=== PATIENT | female | born 1995 ===

== ENCOUNTER 2017-01-06 06:24 | Emergency (ER) | payer MEDICAID ==
[2017-01-06 07:18] VITALS: BMI 32.5
[2017-01-06 11:53] VITALS: BP 106/57; PULSE 62; RESP 18; TEMP 98.3
== END 2017-01-06 07:45 | disposition home or self-care (01) ==
LOC: H.EROB2 06:24
DX: O47.1 False labor at or after 37 completed weeks of gestation (principal); O48.0 Post-term pregnancy; Z3A.40 40 weeks gestation of pregnancy

== ENCOUNTER 2017-01-06 19:06 | Emergency (ER) | payer MEDICAID ==
[2017-01-06 07:18] VITALS: BMI 32.5
[2017-01-07 02:25] VITALS: BP 117/69; PULSE 67; O2SAT 100
== END 2017-01-06 20:30 | disposition home or self-care (01) ==
LOC: H.EROB2 19:06
DX: O47.1 False labor at or after 37 completed weeks of gestation (principal); Z3A.40 40 weeks gestation of pregnancy; O48.0 Post-term pregnancy

== ENCOUNTER 2017-01-07 03:03 | Inpatient (IN) | payer MEDICAID ==
[2017-01-07 03:11] VITALS: BMI 38.2
[2017-01-07] MEDS ORDERED: Lactated Ringer's 2,000 ML IV ONE (03:42)
[2017-01-07] MEDS ORDERED: Lactated Ringer's 1,000 ML IV SCH (04:30)
[2017-01-07] MEDS ORDERED: Bupivacaine HCl 0.25% PF (10 ml) Inj ONE (05:05)
[2017-01-07] MEDS ORDERED: Fentanyl/Bupivacaine HCl 250 ML EPI ONE (05:05)
[2017-01-07 07:14] LABS: WHITE BLOOD COUNT 11.9 K/uL (4.8-10.8)
[2017-01-07 07:15] LABS: BASO % 0.7 % (0.0-2.0); EOS % 0.3 % (0.0-4.0); HEMATOCRIT 38.8 % (34.0-47.0); LYMPH % 10.6 % (20.0-40.0); MEAN CELL VOLUME 87.4 fl (81.0-99.0); MEAN CORPUSCULAR HEMOGLOBIN 29.4 pg (27.0-31.0); MEAN CORPUSCULAR HGB CONC 33.6 g/dL (33.0-37.0); MEAN PLATELET VOLUME 10.6 fl (7.2-11.7); MONO % 6.6 % (0.0-10.0); NEUT % 81.8 % (50.0-75.0); NRBC % 0.1 % (0.0-0.0); RED CELL DISTRIBUTION WIDTH 15.9 % (11.5-14.5)
[2017-01-07 07:16] LABS: BASO # 0.1 K/uL (0.0-0.2); LYMPH # 1.3 K/uL (1.0-4.3); MONO # 0.8 K/uL (0.0-0.8); NEUT # 9.7 K/uL (1.8-7.0)
--- NOTE | 2017-01-07 08:21 | OBADHP ---
Datetime: 01/07/2017 04:19 Admit Comment, IP Provider: CC: ctx HP: 21 yo F at 40.3 weeks via LMP presents with +CTX, FM - VB, LOF. Reports that at 10:00 pm last night, she started experiencing contractions that have been every 10 minutes and lasting for about 30 seconds. This morning, she noticed pink/yellow colored discharge w hile urinating. Now states ctx every 3-4 min. She request epidural. Last U/S: 12/19/2016. PNC: [facility], last visit: 12/30/2016.gbs-,B+ Ab-,hiv-,rpr-,HBsAg-,GC/C -/-,Rubella Imm, A b- POBH: none PGyH: denies STD; PAP 1 year ago PMH: none PSH: none Last sexual encounter: last night. SH: denie: smoking, alcohol, illicit drugs Meds: PNV Allergies NKDA VITALS: 123/72 74 PE: Gen: NAD CVS: no murmurs, regular rate and rhythm, S1, S2 normal. Lungs: clear to auscultation b/l Abdomen: gravid Extr: no edema Pelvic: Cervix 3 cm/75/-2 Bedside ultrasound: vertex presentation MONITOR: FHR: 136 Variablity: moderate: 6-25 bpm ACC: 15x15 no decel Assessment: 21 yo IUP at 40.3 wks in labor. Admit to unit. cbc/ type _ screen IV access monitoring Labor monitoring Anesthesia consult OB H addendum: Patient seen and examined by me. Agree with above assessment and plan. Addendum #2: Patient comfortable with epidural. No complaints Patient examined 8:15 AM she was 6 cm 90% -2 Datetime: 01/07/2017 03:49 Pelvic Type - PN: Adequate Extremities - PN: Normal Abdomen - PN: Normal Back - PN: Normal Breast - PN: Not Done Lungs - PN: Normal Heart - PN: Normal Thyroid - PN: Not Done Neurologic - PN: Normal HEENT - PN: Normal General - PN: Normal FHR - Baseline A Provider: 130 Vital Signs Provider: Reviewed; Within Normal Limits IP Chief Complaint: Uterine contractions NICHD Variability Prov Fetus A: Moderate 6-25bpm NICHD Accel Fetus A IP Provider: 15X15 FHR Category Provider Fetus A: Category I NICHD Decel Fetus A IP Provider: None Dilatation, Provider: 3 Effacement, Provider: 75 Station, Provider: -2 Genitourinary Exam: Not Done DTRs - PN: Normal EGA AdmitDate IP: 40.3 IP Adm Impression: Term, intrauterine ; Active labor IP Admit Plan: Admit to unit; Initiate labor protocol Datetime: 01/06/2017 07:41 Presentation-Admit: Vertex IP Fetus A Comments: Sonogram cephalic Membranes, Provider: Intact Comments, ACOG Physical Exam: ROS: General: no weakness; no fatigue HEENT: no VILLARREAL; no visual dist CV: no palpitations; no no CP GI: no N/V no diarhea : no F/U/D MS: No joint pain Pool Provider: Negative
--- NOTE | 2017-01-07 08:38 | OBHP ---
Datetime: 01/07/2017 04:19 Admit Comment, IP Provider: CC: ctx HP: 21 yo F at 40.3 weeks via LMP presents with +CTX, FM - VB, LOF. Reports that at 10:00 pm last night, she started experiencing contractions that have been every 10 minutes and lasting for about 30 seconds. This morning, she noticed pink/yellow colored discharge w hile urinating. Now states ctx every 3-4 min. She request epidural. Last U/S: 12/19/2016. PNC: [facility], last visit: 12/30/2016.gbs-,B+ Ab-,hiv-,rpr-,HBsAg-,GC/C -/-,Rubella Imm, A b- POBH: none PGyH: denies STD; PAP 1 year ago PMH: none PSH: none Last sexual encounter: last night. SH: denie: smoking, alcohol, illicit drugs Meds: PNV Allergies NKDA VITALS: 123/72 74 PE: Gen: NAD CVS: no murmurs, regular rate and rhythm, S1, S2 normal. Lungs: clear to auscultation b/l Abdomen: gravid Extr: no edema Pelvic: Cervix 3 cm/75/-2 Bedside ultrasound: vertex presentation MONITOR: FHR: 136 Variablity: moderate: 6-25 bpm ACC: 15x15 no decel Assessment: 21 yo IUP at 40.3 wks in labor. Admit to unit. cbc/ type _ screen IV access monitoring Labor monitoring Anesthesia consult OB H addendum: Patient seen and examined by me. Agree with above assessment and plan. Addendum #2: Patient comfortable with epidural. No complaints Patient examined 8:15 AM she was 6 cm 90% -2 Datetime: 01/07/2017 03:49 IP Adm Impression: Term, intrauterine ; Active labor IP Admit Plan: Admit to unit; Initiate labor protocol Pelvic Type - PN: Adequate Extremities - PN: Normal Abdomen - PN: Normal Back - PN: Normal Breast - PN: Not Done Lungs - PN: Normal Heart - PN: Normal Thyroid - PN: Not Done Neurologic - PN: Normal HEENT - PN: Normal General - PN: Normal FHR - Baseline A Provider: 130 EGA AdmitDate IP: 40.3 Vital Signs Provider: Reviewed; Within Normal Limits IP Chief Complaint: Uterine contractions NICHD Variability Prov Fetus A: Moderate 6-25bpm NICHD Accel Fetus A IP Provider: 15X15 FHR Category Provider Fetus A: Category I NICHD Decel Fetus A IP Provider: None Dilatation, Provider: 3 Effacement, Provider: 75 Station, Provider: -2 Genitourinary Exam: Not Done DTRs - PN: Normal Datetime: 01/06/2017 07:41 Presentation-Admit: Vertex IP Fetus A Comments: Sonogram cephalic Membranes, Provider: Intact Comments, ACOG Physical Exam: ROS: General: no weakness; no fatigue HEENT: no VILLARREAL; no visual dist CV: no palpitations; no no CP GI: no N/V no diarhea : no F/U/D MS: No joint pain Pool Provider: Negative
[2017-01-07] MEDS ORDERED: Lidocaine 1% Inj (20ml) ONE (09:21)
[2017-01-07] MEDS: Lactated Ringer's 1,000 ML IV SCH ×2 (11:15→16:53)
[2017-01-07] MEDS ORDERED: Oxytocin 30 units/LR 500ML 30 U/500 ML BAG IV ONE (11:22)
--- NOTE | 2017-01-07 11:57 | OBPN ---
Datetime: 01/07/2017 11:26 IP Progress Impression Other: irregular HR IP Progress Impression: Normal progression of labor; Reassuring heart rate IP Informed Consent Obtain: Vaginal Delivery; Risks, Benefits and Alternatives Discussed IP Progress Plan: Augmentation Pool Provider: Positive Membranes, Provider: Ruptured Contraction Comments Provider: occ FHR - Baseline A Provider: 120 Presentation-Admit: Vertex IP Progress Note Comment: comfortable, no complaints 7 cm, 90% effaced, 0 station start augmentation with pitocin at 2ml/hr discussed with Dr Anna Herman MD OB Hospitalist on-call...earlier she was checked by Dr Ann and she was 6-7cm dilated. One ho ur later she was repeoted to be 8cm. She had SROM at 10:30am. She feels comfortable after epdirual was given earlier this morning. SVE 7cm - no change...will start Pitocin augmentatoin. Discussion with patitent about last sono 7lb 4w ago and weight gain. She will wants to continue l abor and deliver vaginally. She understands risks/complications if LGA. She agree to Pitocin augmen tation NICHD Accel Fetus A IP Provider: 15X15 FHR Category Provider Fetus A: Category I NICHD Variability Prov Fetus A: Moderate 6-25bpm Dilatation, Provider: 7 Effacement, Provider: 90 Station, Provider: 0 NICHD Decel Fetus A IP Provider: None Datetime: 01/07/2017 03:49 Vital Signs Provider: Reviewed; Within Normal Limits Datetime: 01/06/2017 07:41 IP Fetus A Comments: Sonogram cephalic
[2017-01-07] MEDS ORDERED: Oxycodone/Acetaminophen 5/325 mg Tab PO PRN (15:12)
--- NOTE | 2017-01-07 20:33 | OBDS ---
DELIVERY PERSONNEL Nurse Mold Cutting Machine Operator Certified: norris Delivery Doctor: Dr Castillo Scrub Nurse: norris Docket Clerk: ALESIA Carrasco Anesthesiologist: Senior Research Fellow: norris Resident: DR Richey MATERNAL INFORMATION Delivery Anesthesia: Local; Epidural Medications in Delivery: Pitocin Estimated Blood Loss (ml): 200cc Placenta Cultured: No RN Comments: to alive baby boy apgar9/9; uneventful delivery; see MD's notes Provider Comments: Prepartum Dx: 29 y/o at 40.3 GA Post Dx: same with delivery of live male 3425 g, apgars 9,9 Procedure: Normal spontaneous vaginal delivery of live male or female infact, position GISSELL over intact carolny neum with epidural anesthesia Infant was bulb suctioned at the perineum, no nuchal cord visualized. S pontaneous delivery of anterior shoulder, follwed by the posterior shoulder. Spontaneous delivery of intact placenta with 3-vessel cord. Laceration: EBL: [address] Castillo supervised delivery Virgil MAN OB Hospitalist note: This pt was seen and delivered. I was present for rikki. Agree with above note. JENNYNDO LABOR SUMMARY EDC: 01/04/2017 00:00 No. Babies in Womb: 1 Attempted: No Labor Anesthesia: Epidural LABOR INFORMATION Onset of Labor: 01/07/2017 05:00 Complete Dilatation: 01/07/2017 13:15 Oxytocin: Augmentation Group B Beta Strep: Negative Antibiotics # of Doses: 0 Antibiotics Time of Last Dose: 0 Steroids Given: None Reason Steroids Not Administered: Not Applicable Other Reason Not Administered: na MEMBRANES Membranes Rupture Method: Spontaneous Rupture of Membranes: 01/07/2017 10:35 Length of Rupture (hrs): 4.10 Amniotic Fluid Color: Clear Amniotic Fluid Amount: Small Amniotic Fluid Odor: Normal STAGES OF LABOR Stage 1 hrs: 8 Stage 1 min: 15 Stage 2 hrs: 1 Stage 2 min: 26 Stage 3 hrs: 0 Stage 3 min: 24 Total Time in Labor hrs: 10 Total Time in Labor min: 5 VAGINAL DELIVERY Episiotomy: None Laceration Extension: N/A Other Laceration: bilateral labial Laceration Repair: Yes Laceration Repair Note: bilateral inner labial superficial lacerations : repaired with 3-0 vicryl Anesthesia: 2 ml Lidocaine Initial Vag Sponge Count: 5 Final Vag Sponge Count: 5 Initial Vag Sharps Count: 1 Final Vag Sharps Count: 1 Sponge Count Correct: Yes Sharps Count Correct: Yes Count Comment: count correct BABY A INFORMATION Infant Delivery Date/Time: 01/07/2017 14:41 Method of Delivery: Vaginal Born in Route : No : N/A Forceps: N/A Vacuum Extraction: N/A Shoulder Dystocia : No SHOULDER DYSTOCIA BABY A Infant Delivery Date/Time: 01/07/2017 14:41 PRESENTATION/POSITION BABY A Presentation: Cephalic Cephalic Presentation: N/A Vertex Position: Right Occipital Anterior Breech Presentation: N/A PLACENTA INFORMATION BABY A Placenta Delivery Time : 01/07/2017 15:05 SCORES BABY A Heart Rate 1 min: >100 bpm Resp Effort 1 min: Good Cry Reflex Irritability 1 min: Cough or Sneeze or Pulls Away Muscle Tone 1 min: Active Motion Color 1 min: Body [place], Extremities Blue SCORE 1 MIN: 9 Heart Rate 5 min: >100 bpm Resp Effort 5 min: Good Cry Reflex Irritability 5 min: Cough or Sneeze or Pulls Away Muscle Tone 5 min: Active Motion Color 5 min: Body [place], Extremities Blue SCORE 5 MIN: 9 INFANT INFORMATION BABY A Gestational Age at Delivery: 40.3 Gestational Status: Term Infant Outcome : Liveborn Infant Condition : Stable Sex: Male IDENTIFICATION/MEDS BABY A ID Band Number: [id number] ID Band Location: Left Leg; Left Arm WEIGHT/LENGTH BABY A Infant Birthweight (gms): 3425 Weight (lb): 7 Infant Weight (oz): 9 CORD INFORMATION BABY A No. Cord Vessels: 3 Nuchal Cord : N/A Nuchal Cord Other: na True Knot: na Infant Cord pH Baby Arterial: na Infant Cord pH Baby Venous: na Cord Blood Taken: Yes Banking/Donate Info: na Suction: Mouth; Nose; Pharynx
[2017-01-07] MEDS: Benzocaine/Menthol SPRAY TOP PRN (21:07)
[2017-01-08] MEDS: Lactated Ringer's 1,000 ML IV SCH (06:00)
[2017-01-08 06:52] LABS: HEMATOCRIT 29.8 % (34.0-47.0); MEAN CELL VOLUME 89.3 fl (81.0-99.0); MEAN CORPUSCULAR HEMOGLOBIN 29.1 pg (27.0-31.0); MEAN CORPUSCULAR HGB CONC 32.6 g/dL (33.0-37.0); RED CELL DISTRIBUTION WIDTH 15.7 % (11.5-14.5); WHITE BLOOD COUNT 13.1 K/uL (4.8-10.8)
[2017-01-08] MEDS ORDERED: Influenza Vaccine 18yr & older 0.5 ML/45 MCG SYR IM ONE (07:00)
--- NOTE | 2017-01-08 17:14 | OBPPN ---
Datetime: 01/08/2017 06:02 PP Pain Prov: Within normal limits PP Nausea Prov: Denies PP Flatus Prov: Yes PP BM Prov: No PP Breasts Prov: Normal PP Heart Prov: Normal PP Lungs Prov: Normal PP Abdomen/Uterus Prov: Normal PP Lochia Prov: Normal PP Vulva/Perineum Prov: Normal PP CVA Tenderness Prov: Not Done PP Extremities Prov: Normal PP C/S Incision Prov: Not Applicable PP Progress Prov: Normal PP Impression Prov: Normal progression PP Plan Prov: Continue present management PP Progress Note Prov: S: 21 yo s/p NVD on 01/07/2017 at 14:41. [facility]. No overnight events. Pt reports occasional abdominal pain, but well controlled with pain meds. Pt is ambulating without any difficulties. Breast feeding baby. Tolerating PO diet. Lochia is similar to menses in volume. Voiding freely, no BM but passing gas per rectum. Denies fever/chill s, diarrhea, nausea/vomiting, chest pain, dyspnea, and dizziness. O: VS: stable GEN: NAD Cardio: + s1s2, no M/G/R Resp: clear breath sounds b/l Abd: BS+, NT, Uterus is firm and at the level of the umbilicus. Ext: No edema, calves nontender Neuro/psychi: AAOx3, no grossly focal deficit, preserved affect and mood. Assessment/Plan: 21 yo s/p NVD on 01/07/17 at 14:41 doing well on PPD 1. OOB with caution. SCDs for DVT prophylaxis, pt ambulating Ibuprofen 600mg for pain. Colace 100mg PO BID for constipation. Encourage . F/u CBC post-delivery. [place] PGY 1 OBH addendum: Patient seen and examined by me. Agree with above assessment and plan. She desires circumcision for . She understands circumcision as an elective not medically n ecessitated procedure risks discussed with patient including possible revision future with urologist. Informed consent was obtained. DC home on ferrous sulfate 1 pill daily. IP PP Procedures: None Vital Signs Provider PP: Reviewed
[2017-01-08] MEDS: Benzocaine/Menthol SPRAY TOP PRN (22:35)
[2017-01-09] MEDS: Benzocaine/Menthol SPRAY TOP PRN (09:26)
[2017-01-09 11:05] VITALS: BP 109/63; PULSE 69; RESP 20; TEMP 98.3
[2017-01-09 23:31] VITALS: O2SAT 99
== END 2017-01-09 19:00 | disposition home or self-care (01) | DRG 373 ==
LOC: H.EROB2 03:03 → H.L&D 03:38 → H.OB/GYN 17:44
PROVIDERS: ADMIT Obstetrics & Gynecology; ATTEND Obstetrics & Gynecology
PROC: 10E0XZZ Delivery of Products of Conception, External Approach (ICD-10-PCS; principal; 2017-01-07)
PROC: 0UQMXZZ Repair Vulva, External Approach (ICD-10-PCS; 2017-01-07)
PROC: 4A1HXCZ Monitoring of Products of Conception, Cardiac Rate, External Approach (ICD-10-PCS; 2017-01-07)
DX: O48.0 Post-term pregnancy (principal); O70.0 First degree perineal laceration during delivery; Z37.0 Single live birth; Z3A.40 40 weeks gestation of pregnancy